=== PATIENT | male | born 1955 | race Caucasian/White ===

== ENCOUNTER 2019-12-15 08:33 | Emergency (ER) | payer MEDICARE ==
[2019-12-15 08:59] LABS: #Basophils 0.1 thou/uL (0.0-0.2); #Lymphocytes 0.9 thou/uL (1.20-3.40); #Monocytes 0.4 thou/uL (0.11-0.59); #Neutrophils 7.5 thou/uL (1.40-6.50); %Basophils 0.8 % (0.0-1.0); %Eosinophils 0.3 % (0.0-10.0); %Lymphocytes 10.2 % (21.0-51.0); %Neutrophils 84.8 % (42.0-75.0); Hemoglobin 14.5 g/dL (14.0-18.0); Mean Corpuscular HGB CONC 30.8 g/dL (32.0-36.0); Mean Corpuscular Hemoglobin 29.1 pg (27.0-31.0); Mean Corpuscular Volume 94.5 fL (78.0-98.0); Mean Platelet Volume 6.8 fL (7.4-10.4); Platelet Count 309 thou/uL (130-400); RBC Distribution Width 12.9 % (11.5-14.5); Red Blood Cell (RBC) Count 4.99 mill/uL (4.70-6.10); White Blood Cell (WBC) Count 8.8 thou/uL (4.8-10.8)
[2019-12-15] MEDS ORDERED: Ketorolac Tromethamine 30 MG/ML VIAL ONE (09:10)
[2019-12-15] MEDS ORDERED: HYDROmorphone 0.5 MG/0.5 ML SYRINGE ONE (09:11)
[2019-12-15 09:16] LABS: ALT (SGPT) 16 U/L (8-55); AST (SGOT) 20 U/L (5-34); Albumin 4.6 g/dL (3.4-4.8); Alkaline Phosphatase 59 U/L (40-110); Anion Gap 18 mmol/L (10-20); BUN (Urea Nitrogen) 15 mg/dL (8.4-25.7); Bilirubin, Total 1.2 mg/dL (0.2-1.2); Calc. Creatinine Clearance 0 mL/min (70-130); Calcium 9.6 mg/dL (7.8-10.44); Carbon Dioxide 22 mmol/L (23-31); Chloride 105 mmol/L (98-107); Estimated GFR-MDRD 50; Globulin 3.1 g/dL (2.4-3.5); Glucose 127 mg/dL (80-115); Lipase 35 U/L (8-78); Potassium 3.2 mmol/L (3.5-5.1); Protein, Total 7.7 g/dL (5.8-8.1); Sodium 142 mmol/L (136-145)
--- NOTE | 2019-12-15 11:36 | CT ---
CT ABDOMEN AND PELVIS WITHOUT CONTRAST: Date: 12/15/2019 A small hiatal hernia was noted. The lung bases were clear. The liver, spleen, pancreas, gallbladder, adrenal glands, and abdominal aorta showed no acute findings. The collecting system in pelvis of the right kidney is ever so slightly more prominent than the left. The proximal right ureter is slightly larger than the left. There is a calcification distally near t he right UVJ that appears to be most likely in the ureter. It is probably a distal ureteral calculus. It is 5.0 mm in size. No residual stones are seen in either kidney. The bowel shows no distention or inflammatory changes around it, or wall thickening. No free air or f ree fluid present. CT of the pelvis was remarkable for several calcifications, most of which are phleboliths. As stated above, one is thought to most likely be a distal ureteral calculus. No free fluid or inflammatory herminia nges are seen in the pelvis. Moderate to severe degenerative facet disease is seen particularly at th e lumbosacral junction. IMPRESSION: Findings most consistent with a 5.0 mm distal right ureteral calculus near the UVJ. There is very min imal prominence of the collecting system of the right kidney compared to the left. Beeped about study at 1020 hours. Discuss[address] case with Dr. Menchaca at 1027 hours. CODE CR. POS: HOME
[2019-12-15] MEDS ORDERED: Ondansetron PF 4 MG/2 ML Vial ONE (11:39)
[2019-12-15 11:51] LABS: Bilirubin Small (Negative); Blood, Urine Trace (Negative); Clarity Cloudy (Clear); Glucose, Urine (Dipstick) Negative (Negative); Leukocyte Small (Negative); Nitrite Negative (Negative); Protein, Urine (Dipstick) 100 mg/dL (Neg-Trace)
[2019-12-15 11:56] LABS: Bacteria/HPF 1+ HPF (None Seen); Mucous/LPF 4+ LPF (<2+); Squamous Epithelial 0-3 HPF (0-3); WBC/HPF 0-3 HPF (0-3)
== END 2019-12-15 12:30 | disposition home or self-care (01) ==
LOC: BURERS 08:33
DX: N20.0 Calculus of kidney (principal)
CPT/HCPCS: 74176; 80053; 83690; 85025; 96372; 96374; 96375; 99284; J1170; J1885; J2405; 81003; 81015

== ENCOUNTER 2022-12-07 13:35 | Emergency (ER) | payer MEDICARE ==
[2022-12-07] MEDS ORDERED: Morphine 4 MG/ML VIAL ONE (14:00)
[2022-12-07] MEDS ORDERED: Ketorolac Tromethamine 30 MG/ML VIAL ONE (14:00)
[2022-12-07] MEDS ORDERED: Ondansetron PF 4 MG/2 ML Vial ONE (14:00)
[2022-12-07 14:03] LABS: #Basophils 0.1 thou/uL (0.0-0.2); #Lymphocytes 0.8 thou/uL (1.20-3.40); #Monocytes 0.3 thou/uL (0.11-0.59); #Neutrophils 4.8 thou/uL (1.40-6.50); %Basophils 0.9 % (0.0-1.0); %Eosinophils 0.6 % (0.0-10.0); %Lymphocytes 13.3 % (21.0-51.0); %Monocytes 4.7 % (0.0-10.0); %Neutrophils 80.5 % (42.0-75.0); Hemoglobin 14.8 g/dL (14.0-18.0); Mean Corpuscular Hemoglobin 29.3 pg (27.0-31.0); Mean Corpuscular Volume 94.4 fl (78.0-98.0); Mean Platelet Volume 6.2 fL (7.4-10.4); Platelet Count 293 10x3/uL (130-400); RBC Distribution Width 12.8 % (11.5-14.5); Red Blood Cell (RBC) Count 5.04 mill/uL (4.70-6.10)
[2022-12-07 14:08] LABS: Bilirubin Small (Negative); Blood, Urine Large (Negative); Clarity Cloudy (Clear); Glucose, Urine (Dipstick) Negative (Negative); Ketone, Urine Trace mg/dL (Negative); Leukocyte Negative (Negative); Nitrite Negative (Negative); Protein, Urine (Dipstick) 100 mg/dL (Neg-Trace); Urobilinogen 0.2 mg/dL (Less than 2); pH, Urine 5.5 (5.0-9.0)
[2022-12-07 14:10] LABS: Specific Gravity, Urine 1.024 (1.002-1.036)
[2022-12-07 14:13] LABS: Bacteria/HPF 2+ HPF (None Seen); RBC/HPF Greater than 50 HPF (0-3); Squamous Epithelial 0-3 HPF (0-3); WBC/HPF 0-3 HPF (0-3)
[2022-12-07 14:18] LABS: ALT (SGPT) 17 U/L (8-55); AST (SGOT) 20 U/L (5-34); Albumin 4.4 g/dL (3.4-4.8); Alkaline Phosphatase 49 U/L (40-110); Anion Gap 13 mmol/L (10-20); BUN (Urea Nitrogen) 14 mg/dL (8.4-25.7); Bilirubin, Total 0.5 mg/dL (0.2-1.2); Calc. Creatinine Clearance 0 mL/min (70-130); Carbon Dioxide 26 mmol/L (23-31); Chloride 105 mmol/L (98-107); Estimated GFR 77; Glucose 109 mg/dL (80-115); Protein, Total 7.4 g/dL (5.8-8.1); Sodium 140 mmol/L (136-145)
== END 2022-12-07 14:50 | disposition home or self-care (01) ==
LOC: BURERS 13:35
DX: N13.2 Hydronephrosis with renal and ureteral calculous obstruction (principal)
CPT/HCPCS: 74176; 80053; 81003; 81015; 85025; 87086; 96374; 96375; J1885; J2270; J2405

== ENCOUNTER 2025-07-11 15:18 | Emergency (ER) | payer MEDICARE ==
[2025-07-11 15:50] LABS: Glucose, Urine (Dipstick) Negative (Negative); Leukocyte Negative (Negative); Protein, Urine (Dipstick) > or equal to 300 mg/dL (Neg-Trace); Specific Gravity, Urine 1.015 (1.005-1.030)
[2025-07-11 16:22] LABS: Bacteria/HPF None Seen HPF (None Seen); CAUTI Indications for Culture Dysuria,urgency,freq; RBC/HPF None Seen HPF (0-3); Sperm/HPF 4+ HPF (None Seen); WBC/HPF None Seen HPF (0-3)
[2025-07-11 16:23] LABS: Urine Culture Reflex No No
[2025-07-11 16:43] LABS: #Basophils 0.2 thou/uL (0.0-0.2); #Eosinophils 0.0 thou/uL (0.0-0.7); #Lymphocytes 1.0 thou/uL (1.20-3.40); #Monocytes 0.5 thou/uL (0.11-0.59); #Neutrophils 5.7 thou/uL (1.40-6.50); %Basophils 2.9 % (0.0-1.0); %Eosinophils 0.3 % (0.0-10.0); %Lymphocytes 13.2 % (21.0-51.0); %Monocytes 6.9 % (0.0-10.0); %Neutrophils 76.7 % (42.0-75.0); Hematocrit 41.7 % (42.0-52.0); Hemoglobin 13.8 g/dL (14.0-18.0); Mean Corpuscular Hemoglobin 28.7 pg (27.0-31.0); Mean Corpuscular Volume 87.0 fl (78.0-98.0); Platelet Count 425 10x3/uL (130-400); Red Blood Cell (RBC) Count 4.79 mill/uL (4.70-6.10); White Blood Cell (WBC) Count 7.4 10x3/uL (4.8-10.8)
[2025-07-11 16:49] LABS: ALT (SGPT) 24 U/L (Less than 45); AST (SGOT) 33 U/L (11-34); Albumin 4.3 g/dL (3.1-4.5); Alkaline Phosphatase 50 U/L (40-110); Anion Gap 19 mmol/L (10-20); BUN (Urea Nitrogen) 23 mg/dL (8.4-25.7); Bilirubin, Total 0.5 mg/dL (0.3-1.2); Calc. Creatinine Clearance 0 mL/min (70-130); Calcium 9.8 mg/dL (7.8-10.44); Carbon Dioxide 21 mmol/L (23-31); Chloride 109 mmol/L (98-107); Globulin 3.3 g/dL (2.4-3.5); Glucose 116 mg/dL (80-115); Lipase 33 U/L (8-78); Potassium 3.9 mmol/L (3.5-5.1); Sodium 145 mmol/L (136-145)
== END 2025-07-11 17:26 | disposition home or self-care (01) ==
LOC: BURERS 15:18
DX: N20.0 Calculus of kidney (principal)
CPT/HCPCS: 74176; 80053; 81001; 83605; 83690; 85025; 96374; J2270; J2272